=== PATIENT | female | born 1960 | race African-American/Black ===

== ENCOUNTER 2019-07-14 07:23 | Inpatient (IN) | payer MEDICARE, OTHER ==
[2019-07-14] MEDS ORDERED: hydrALAZINE HCL 20 MG/1 ML ONE ×2 (08:48→10:55)
[2019-07-14] MEDS ORDERED: SODIUM CHLORIDE IRRIG SOLUTION 3,000 ML IRRIG.SOLN IR ONE (08:48)
[2019-07-14] MEDS ORDERED: LACTATED RINGERS 1,000 ML IV.SOLN IV ONE (08:48)
[2019-07-14] MEDS ORDERED: DEXAMETHASONE SODIUM PHOSPHATE 10 MG/ML VIAL ONE (08:48)
[2019-07-14] MEDS ORDERED: LIDOCAINE HCL 2% PF 100MG/5ML VIAL IJ ONE (08:48)
[2019-07-14] MEDS ORDERED: LIDOCAINE HCL 1% PF 300MG/30ML VIAL ONE (08:48)
[2019-07-14] MEDS ORDERED: SUGAMMADEX SODIUM 200 MG/2 ML VIAL IV ONE (08:48)
[2019-07-14] MEDS ORDERED: SCOPOLAMINE HYDROBROMIDE 1.5MG/72HR PATCH TD ONE (08:48)
[2019-07-14] MEDS ORDERED: SEVOFLURANE 250 ML LIQUID IH ONE (08:48)
[2019-07-14] MEDS ORDERED: PROPOFOL 200 MG/20 ML VIAL IV ONE (08:48)
[2019-07-14] MEDS ORDERED: MIDAZOLAM HCL 2 MG/2 ML VIAL ONE (08:48)
[2019-07-14] MEDS ORDERED: ceFAZolin SODIUM 1 GM VIAL ONE (08:48)
[2019-07-14] MEDS ORDERED: ROCURONIUM BROMIDE 10 MG/ML 5ML VIAL ONE (08:48)
[2019-07-14] MEDS ORDERED: BUPIV. HCL 0.25% (2.5MG/ML)/EPI. (1:200,000) PF 10 ML VIAL IM ONE (08:48)
[2019-07-14] MEDS ORDERED: ONDANSETRON HCL/PF 4 MG/ 2ML VIAL ONE (08:48)
[2019-07-14] MEDS ORDERED: FAMOTIDINE 20 MG/2 ML VIAL IV ONE (08:48)
[2019-07-14] MEDS ORDERED: HYDROmorphone HCL/PF 1 MG/ML VIAL ONE (11:02)
[2019-07-14] MEDS ORDERED: fentaNYL CITRATE/PF 100 MCG/2 ML INJ. ONE (11:13)
[2019-07-14] MEDS ORDERED: IPRATROPIUM/ALBUTEROL SULFATE 3 ML AMPUL.NEB NEB PRN (12:25)
[2019-07-14] MEDS ORDERED: PROMETHAZINE HCL 25 MG in 0.9 % SODIUM CHLORIDE 50 ML IV PRN (12:25)
[2019-07-14] MEDS ORDERED: hydrALAZINE HCL 20 MG/1 ML IVP ONE ×3 (12:30→22:50)
[2019-07-14 12:35] VITALS: BMI 40.8
--- NOTE | 2019-07-14 12:36 | History and Physical Report ---
History of Present Illnes - History of Present Illness Reason for Visit: S/P LAPAROSCOPIC VERTICAL SLEEVE GASTRECTOMY WITH HIATAL HERNIA REPAIR History of Present Illness: Patient is a 58-year-old female who has tried multiple diets and exercise programs with no success. She has always struggled with her weight ever since having children. Patient and surgeon decided to proceed with gastric sleeve procedure. Procedure went well-she was a very difficult intubation so may have some throat irritation. Patient has been on a liquid diet prior to surgery so she is a risk of dehydration s/p surgery. She will be admitted for IV hydration to help hydrate patient until he is able to tolerate a sufficient oral intake, will treat pain with IV medication until patient is able to tolerate oral meds, IV antiemetics to help reduce episodes of nausea and/or vomiting. Patient will be monitored closely using telemetry s/p surgery d/t hx of HTN and JEANETH. Will encourage incentive spirometer for morbid obesity and JEANETH. Will also monitor blood sugars closely due to last A1C >10; will implement SSI as needed. Will watch for symptoms of blood loss due to hx of anemia with last hgb of 9.5 and Hct fo 30.4. Patient appears very uncomfortable s/p surgery. Patient blood pressure 200s/90s will give IV hydralazine. - Past Medical History Cardiac: HTN, Hyperlipidemia Pulmonary: Previously intubated (Difficult intubation), Sleep Apnea Gastrointestinal: Other (Anemia) Heme/Onc: Anemia NOS Psych: Anxiety Musculoskeletal: Chronic low back pain Endocrine: Diabetes (DM2 with insulin), obesity Grav: 4 Para: 2 Ab: 2 - Past Surgical History Past Surgical History: Other (RTC 1998), Tubal Ligation (1975), Other (cone biopsy 1991) - Past Family History Mother Family History: DM, Other (obesity) Father Family History: Hypertension - Past Social History Smoke: Quit (30 years ago) Occupation: Disabled Alcohol: None Drugs: None Lives: With Family () Domestic Violence: Negative - Health Maintenance Health Maintenance: Cholesterol, Pap Smear, Mammogram Influenza Vaccine: No Pneumonia Vaccine: No Resuscitation Status: Resusciation Status Resuscitation Status Full Code - Unable to Obtain History Unable to Obtain: No Review of Systems - Review of Systems Constitutional: Weakness Eyes: negative: conjunctivae inflammation, eyelid inflammation ENT: Throat Pain (difficult intubation; sore) Respiratory: SOB with Excertion Cardiovascular: negative: Chest Pain, Palpitations Gastrointestinal: Nausea, Abdominal Pain (s/p LSG). negative: Vomiting Genitourinary: negative: Dysuria Musculoskeletal: Back Pain (chronic) Skin: Other (abdominal incisions) Neurological: Weakness - Medications/Allergies Allergies/Adverse Reactions: Allergies Allergy/AdvReac Type Severity Reaction Status Date / Time No Known Allergies Allergy Unverified 07/14/19 12:15 Home Medications: Home Medications Aspirin 81 mg PO DAILY 07/14/19 Atorvastatin Calcium 20 mg PO DAILY 07/14/19 Carvedilol [Coreg] 12.5 mg PO DAILY 07/14/19 Ergocalciferol (Vitamin D2) [Vitamin D2] 50,000 unit PO WEEK 07/14/19 Ferrous Gluconate [Iron] 236 mg PO DAILY 07/14/19 Fluticasone Propionate [Flovent 50 Mcg Diskus] 50 mcg IH DAILY PRN 07/14/19 Furosemide [Lasix] 20 mg PO DAILY 07/14/19 Insulin Aspart [Novolog] 10 units SQ 0730 07/14/19 Insulin Glargine,Hum.rec.anlog [Lantus Solostar] 44 unit SQ HS 07/14/19 Lisinopril/Hydrochlorothiazide [Lisinopril-Hctz 20-25 mg Tab] 1 each PO DAILY 07/14/19 Multivit-Min/Iron/Folic/Lutein [Multivitamin Women 50 Plus Tab] 1 tab PO DAILY 07/14/19 Oxycodone HCl/Acetaminophen [Percocet 10/325] 1 each PO TID 07/14/19 Potassium Chloride 10 meq PO DAILY 07/14/19 Ranitidine HCl 150 mg PO BID 07/14/19 Current Inpatient Medications: Current Inpatient Medications Acetaminophen (Ofirmev) 1,000 mg IV Q6H PRN PRN Reason: Pain Stop: 08/13/19 12:34 Hydrocodone Bitart/Acetaminophen (Hycet 7.5-325mg/15 Ml Ud Cup) 15 ml PO Q4 PRN PRN Reason: Mild Pain (Score 1-4) Stop: 07/18/19 12:24 Albuterol/Ipratropium (Duoneb) 3 ml NEB Q4 PRN PRN Reason: Wheezing Stop: 08/13/19 12:24 Enoxaparin Sodium (Lovenox) 40 mg SQ DAILY MADELYN Stop: 07/29/19 12:25 Famotidine (Pepcid) 20 mg IVP BID [facility] Stop: 07/18/19 20:59 Hydralazine HCl (Apresoline) 10 mg IVP NOW ONE Stop: 07/14/19 12:31 Sodium Chloride (Normal Saline) 1,000 mls @ 150 mls/hr IV Q8H [facility] Stop: 08/13/19 12:29 Promethazine HCl 25 mg/ Sodium (Chloride) 51 mls @ 200 mls/hr IV Q6 PRN PRN Reason: Nausea / Vomiting Stop: 07/18/19 12:24 Cefazolin Sodium 1 gm/ Sodium (Chloride) 50 mls @ 100 mls/hr IV Q8H [facility] Stop: 07/15/19 01:59 Insulin Human Regular (Novolin R) 0 unit SQ CHEMQID [facility]; Protocol Stop: 08/13/19 16:59 Miscellaneous (Chem Sticks) 1 each [facility] Stop: 08/13/19 16:59 Morphine Sulfate () 2 mg IV Q2H PRN PRN Reason: PAIN 8-10 Stop: 07/15/19 12:24 Ondansetron HCl (Zofran) 4 mg IVP Q6H PRN PRN Reason: Nausea / Vomiting Stop: 07/18/19 12:24 Exam - Exam Vital Signs: Vital Signs (72 hours) 07/14/19 07/14/19 12:18 12:30 Temperature 96.3 F L 96.3 F L Pulse Rate [ 77 77 Left] Respiratory 18 18 Rate Blood Pressure 204/98 204/78 [Left Arm] O2 Sat by Pulse 98 98 Oximetry General: Alert, Oriented to Person, Oriented to Place, Cooperative, Moderate distress (still drowsy from anesthesia) HEENT: Atraumatic, PERRLA, Other (dry mucous membranes) Neck: Normal Range of Motion Carotids: No bruit Lungs: Clear to auscultation, Normal air movement Cardiovascular: Regular rate, Normal S1, Normal S2 Abdomen: Soft, Decreased Bowel Sounds Integumentary: Warm, Dry, Pale, Other (Incisions x 5 intact without redness/erythema- skin adhesive intact) Extremities: No edema, Normal pulses, No tenderness/swelling Neurological: Strength Equal Bilat, Sensation intact, Generalized Weakness Psych/Mental Status: Appropriate Affect Assessment/Plan - Assessment/Plan (1) Status post laparoscopic sleeve gastrectomy Status: Acute Current Visit: Yes Plan: Plan to admit for IV hydration, IV pain meds, and IV antiemetics. Lovenox and SCDs to help prevent DVTs, IS and frequent ambulation will be implemented. Start ice chips and advance diet as tolerated. IV pepcid BID (2) Nausea and vomiting Status: Acute Current Visit: Yes Plan: Pepcid IV BID ordered; IV antiemetics, and IVF (3) Type 2 diabetes mellitus Status: Acute Current Visit: Yes Qualifiers: Diabetes mellitus care home insulin use: with care home use Diabetes mellitus complication status: with hyperglycemia Qualified Code(s): E11.65 - Type 2 diabetes mellitus with hyperglycemia; Z79.4 - termite inspector (current) use of insulin Plan: last A1C > 10; we will check blood sugars ac & hs and implement sliding scale insulin (4) Hypertension Status: Acute Current Visit: Yes Qualifiers: Hypertension type: essential hypertension Qualified Code(s): I10 - Essential (primary) hypertension Plan: Will monitor blood pressure every 4 hours and prn; may implement blood pressure medications as needed (5) Obstructive sleep apnea Status: Acute Current Visit: Yes Plan: Patient is to use CPAP while hospitalized; incentive spirometer every hour while awake (6) Chronic low back pain Status: Acute Current Visit: Yes (7) Morbid (severe) obesity due to excess calories Status: Acute Current Visit: Yes Plan: Patient is s/p gastric sleeve. We will assist patient with implementing gastric sleeve diet protocol starting with ice chips and clear liquids and advancing as tolerated VTE Assessment - RISK FACTOR SCORE VTE RISK FACTOR SCORES: AGE 40-60 YEARS, OBESITY, MAJOR SURGERY/ANESTHESIA TIME > 1 HOUR - RISK VTE HIGH RISK: SCORE OF 3-4 (RISK PROXIMAL DVT 4-8%) PROPHYLAXIS NEEDED (Lovenox daily, SCDs while in bed, frequent ambulation, Incentive spirometer)
[2019-07-14] MEDS: 0.9 % SODIUM CHLORIDE 1,000 ML IV SCH ×2 (12:39→20:01)
[2019-07-14] MEDS: ACETAMINOPHEN 1,000 MG/100 ML INJ IV PRN ×2 (12:51→21:17)
[2019-07-14] MEDS: MORPHINE SULFATE 2 MG/ML VIAL IV PRN ×2 (15:10→17:29)
[2019-07-14] MEDS: ceFAZolin SODIUM 1 GM in 0.9 % SODIUM CHLORIDE 50 ML IV SCH (17:12)
[2019-07-14] MEDS: INSULIN REGULAR, HUMAN 100 UNIT/ML 10ML VIAL SQ SCH ×2 (17:24→22:02)
[2019-07-14] MEDS ORDERED: ceFAZolin SODIUM 1 GM in 0.9 % SODIUM CHLORIDE 50 ML IV SCH (17:30)
[2019-07-14] MEDS: ONDANSETRON HCL/PF 4 MG/ 2ML VIAL IVP PRN (17:38)
[2019-07-14] MEDS: FAMOTIDINE 20 MG/2 ML VIAL IVP SCH (20:02)
[2019-07-15] MEDS: ceFAZolin SODIUM 1 GM in 0.9 % SODIUM CHLORIDE 50 ML IV SCH (01:38)
[2019-07-15] MEDS: MORPHINE SULFATE 2 MG/ML VIAL IV PRN (01:40)
[2019-07-15] MEDS ORDERED: hydrALAZINE HCL 20 MG/1 ML IVP ONE ×2 (02:18→17:45)
[2019-07-15] MEDS: 0.9 % SODIUM CHLORIDE 1,000 ML IV SCH ×3 (02:37→16:11)
[2019-07-15] MEDS ORDERED: LISINOPRIL 20 MG TABLET PO ONE ×2 (06:16→16:21)
[2019-07-15] MEDS: hydroCHLOROthiazide 25 MG TABLET PO SCH (06:31)
[2019-07-15] MEDS: CARVEDILOL 12.5 MG TABLET PO SCH (06:31)
[2019-07-15] MEDS: LISINOPRIL 10 MG TABLET PO SCH (06:31)
[2019-07-15 06:46] LABS: BASOPHILS % 0.4 % (0.0-1.5); NEUTROPHILS # 10.3 # k/uL (1.4-7.7)
[2019-07-15 06:47] LABS: eGFR (Non-African) > 60
--- NOTE | 2019-07-15 06:48 | Inpatient Progress Note ---
Subjective - Required Recertification Statement I anticipate X number of days because-include discharge plan: 1 - Review of Systems Events since last encounter: Patient is lying in bed this morning awake. She states that she did not get much sleep. She was having a lot of discomfort last night. She states that pain is improving. She has had some nausea and moderate discomfort from the gas. She denies any chest pain or shortness of breath. She has been up ambulating in the halls and using incentive spirometer while awake. She is compliant with care. Blood pressures have been elevated 200s/90s; she has received several doses of Hydralazine- patient not having any dry heaves; we will initiate blood pressure medications this morning. General: Fatigue HEENT: Denies: Head Aches, Dysphasia Pulmonary: Denies: Dyspnea Cardiovascular: Denies: Chest Pain, Edema Gastrointestinal: Nausea, Abdominal Pain. Denies: Vomiting Genitourinary: Denies: Dysuria Musculoskeletal: Back Pain Neurological: Weakness Objective - Exam Vitals and I&O: Vital Signs Temp 99.5 F 07/15/19 05:50 Pulse 90 07/15/19 06:00 Resp 20 07/15/19 06:00 BP 195/82 07/15/19 05:50 Pulse Ox 99 07/15/19 06:00 Intake & Output 07/14/19 07/14/19 07/15/19 11:59 23:59 11:59 Intake Total 593 1260 Output Total 1000 625 Balance -407 635 Weight 125.464 kg Intake: IV 453 1200 right AC 453 1200 Oral 140 60 Output: Urine 1000 625 Other: Voiding Method Toilet Toilet # Voids 1 # Bowel Movements 0 General: Alert, Oriented to Person, Oriented to Place, Oriented to Time, Cooperative, Mild distress, Morbidly Obese HEENT: Atraumatic, PERRLA, Mouth Mucous membr. moist/[place], Nose Mucous membr. moist/[place] Neck: Supple, +2 carotid pulse wo bruit Lungs: Clear to auscultation, Normal air movement, Speaks full Sentences Cardiovascular: Regular rate, Normal S1, Normal S2 Abdomen: Soft, Decreased Bowel Sounds Extremities: No edema, Normal pulses, No tenderness/swelling Skin: [place], Warm, Dry, Other (Incisions intact with no redness/erythema/drainage; skin adhesive intact) Neurological: Normal gait, Normal speech, Strength Equal Bilat Psych/Mental Status: Mental status NL, Mood NL, Appropriate Affect - Results Results: Laboratory Results WBC 13.20 K/ul (4.00-12.00) H 07/15/19 05:15 RBC 4.04 M/ul (3.90-5.20) 07/15/19 05:15 Hgb 10.0 g/dL (11.5-16.0) L 07/15/19 05:15 Hct 31.2 % (34.5-46.5) L 07/15/19 05:15 MCV 77.0 fl (80.0-100.0) L 07/15/19 05:15 MCH 24.6 pg (28.0-34.0) L 07/15/19 05:15 MCHC 31.9 g/dL (30.0-36.0) 07/15/19 05:15 RDW 13.5 % (11.3-14.3) 07/15/19 05:15 Plt Count 341 K/mm3 (130-400) 07/15/19 05:15 Neut % (Auto) 77.5 % (39.0-79.0) 07/15/19 05:15 Lymph % (Auto) 13.6 % (16.0-50.0) L 07/15/19 05:15 [place] % (Auto) 7.6 % (0.0-11.0) 07/15/19 05:15 Eos % (Auto) 0.9 % (0.0-6.8) 07/15/19 05:15 Baso % (Auto) 0.4 % (0.0-1.5) 07/15/19 05:15 Neut # (Auto) 10.3 # k/uL (1.4-7.7) H 07/15/19 05:15 Lymph # (Auto) 1.8 # k/uL (0.6-4.0) 07/15/19 05:15 [place] # (Auto) 1.0 # k/uL (0.0-0.9) H 07/15/19 05:15 Eos # (Auto) 0.1 # k/uL (0.0-0.6) 07/15/19 05:15 Baso # (Auto) 0.1 # k/uL (0.0-0.5) 07/15/19 05:15 Sodium 139 mmol/L (137-145) 07/15/19 05:15 Potassium 4.0 mmol/L (3.5-5.1) 07/15/19 05:15 Chloride 104 mmol/L (98-107) 07/15/19 05:15 Carbon Dioxide 21 mmol/L (22-30) L 07/15/19 05:15 Anion Gap 18.0 07/15/19 05:15 BUN 15 mg/dL (7-17) 07/15/19 05:15 Creatinine 0.91 mg/dL (0.52-1.04) 07/15/19 05:15 Estimated Creat Clear 155 07/15/19 05:15 Est GFR ( Amer) > 60 (60-) 07/15/19 05:15 Est GFR (Non-Af Amer) > 60 (60-) 07/15/19 05:15 Glucose 174 mg/dL (74-106) H 07/15/19 05:15 Calcium 9.3 mg/dL (8.4-10.2) 07/15/19 05:15 Total Bilirubin 0.4 mg/dL (0.2-1.3) 07/15/19 05:15 AST 48 U/L (15-46) H 07/15/19 05:15 ALT 17 U/L (0-35) 07/15/19 05:15 Alkaline Phosphatase 115 U/L (38-126) 07/15/19 05:15 Total Protein 7.6 g/dL (6.3-8.2) 07/15/19 05:15 Albumin 3.8 g/dL (3.5-5.0) 07/15/19 05:15 Assessment/Plan - Assessment/Plan (1) Status post laparoscopic sleeve gastrectomy Status: Acute Current Visit: Yes Assessment: Patient experiencing nausea; has been ambulating, wearing SCDs while in bed, using incentive spirometry, patient receiving lovenox to prevent DVT Plan: Patient getting IV fluids for hydration, IV pain meds, and IV antiemetics. Lovenox and SCDs to help prevent DVTs, IS and frequent ambulation will be implemented. Patient eating ice chips and will advance diet to clear liquids as tolerated once nausea and vomiting is controlled. Will continue with Pepcid IV BID for GI upset (2) Nausea and vomiting Status: Acute Current Visit: Yes Assessment: Patient having nausea; able to sip on fluids Plan: Will continue with Zofran and phenergan (3) Type 2 diabetes mellitus Status: Acute Current Visit: Yes Qualifiers: Diabetes mellitus termite inspector insulin use: with termite inspector use Diabetes mellitus complication status: with hyperglycemia Qualified Code(s): E11.65 - Type 2 diabetes mellitus with hyperglycemia; Z79.4 - shelter (current) use of insulin Assessment: Blood sugar this morning 174 Plan: Patient on SSI- will continue to monitor closely (4) Hypertension Status: Acute Current Visit: Yes Qualifiers: Hypertension type: essential hypertension Qualified Code(s): I10 - Essential (primary) hypertension Assessment: Blood pressures remain elevated >180s/90s; denies headaches, chest pain, or shortness of breath Plan: Several doses of Hydralazine given; will start carvedilol, lisinopril and HCTZ this morning; continue to monitor (5) Obstructive sleep apnea Status: Acute Current Visit: Yes Assessment: Stable Plan: Continue to use CPAP (6) Chronic low back pain Status: Acute Current Visit: Yes Assessment: stable Plan: May offer heating pad (7) Morbid (severe) obesity due to excess calories Status: Acute Current Visit: Yes Assessment: Patient tolerating ice chips and water; some nausea Plan: Will advance diet to clear liquids today
[2019-07-15] MEDS: HYDROcodone-ACETAMIN 7.5-325/15ML SOLN UD CUP PO PRN ×4 (07:36→20:29)
[2019-07-15] MEDS: INSULIN REGULAR, HUMAN 100 UNIT/ML 10ML VIAL SQ SCH ×4 (07:37→20:31)
[2019-07-15] MEDS: FAMOTIDINE 20 MG/2 ML VIAL IVP SCH ×2 (08:53→20:24)
[2019-07-15] MEDS: ENOXAPARIN SODIUM 40 MG/0.4 ML DISP.SYRIN SQ SCH (13:04)
[2019-07-15] MEDS ORDERED: hydrALAZINE HCL 20 MG/1 ML ONE (17:45)
[2019-07-15] MEDS: ONDANSETRON HCL/PF 4 MG/ 2ML VIAL IVP PRN (20:21)
[2019-07-15] MEDS ORDERED: LABETALOL HCL 20 MG/4 ML SYRINGE IV ONE (22:10)
[2019-07-16] MEDS: HYDROcodone-ACETAMIN 7.5-325/15ML SOLN UD CUP PO PRN ×2 (01:18→05:42)
[2019-07-16] MEDS ORDERED: LABETALOL HCL 20 MG/4 ML SYRINGE IV ONE ×2 (02:44→02:45)
[2019-07-16] MEDS: ACETAMINOPHEN 1,000 MG/100 ML INJ IV PRN ×2 (03:03→08:44)
--- NOTE | 2019-07-16 07:24 | Discharge Summary ---
Discharge Summary - Discharge [facility] Admission Date: 07/14/19 Discharge Date: 07/16/19 Discharge To: Home History of Present Illness: Patient is a 58-year-old female who has tried multiple diets and exercise programs with no success. She has always struggled with her weight ever since having children. Patient and surgeon decided to proceed with gastric sleeve procedure. Procedure went well-she was a very difficult intubation so may have some throat irritation. Patient has been on a liquid diet prior to surgery so she is a risk of dehydration s/p surgery. She will be admitted for IV hydration to help hydrate patient until he is able to tolerate a sufficient oral intake, will treat pain with IV medication until patient is able to tolerate oral meds, IV antiemetics to help reduce episodes of nausea and/or vomiting. Patient will be monitored closely using telemetry s/p surgery d/t hx of HTN and JEANETH. Will encourage incentive spirometer for morbid obesity and JEANETH. Will also monitor blood sugars closely due to last A1C >10; will implement SSI as needed. Will watch for symptoms of blood loss due to hx of anemia with last hgb of 9.5 and Hct fo 30.4. Patient appears very uncomfortable s/p surgery. Patient blood pressure 200s/90s will give IV hydralazine. Condition at Discharge: Stable Home Medications: Ambulatory Orders Medication Instructions Recorded Aspirin 81 mg PO DAILY 07/14/19 Atorvastatin Calcium 20 mg PO DAILY 07/14/19 Carvedilol [Coreg] 12.5 mg PO DAILY 07/14/19 Ergocalciferol (Vitamin D2) 50,000 unit PO WEEK 07/14/19 [Vitamin D2] Ferrous Gluconate [Iron] 236 mg PO DAILY 07/14/19 Fluticasone Propionate [Flovent 50 50 mcg IH DAILY PRN 07/14/19 Mcg Diskus] Furosemide [Lasix] 20 mg PO DAILY 07/14/19 Insulin Aspart [Novolog] 10 units SQ 0730 07/14/19 Insulin Glargine,Hum.rec.anlog 44 unit SQ HS 07/14/19 [Lantus Solostar] Lisinopril/Hydrochlorothiazide 1 each PO DAILY 07/14/19 [Lisinopril-Hctz 20-25 mg Tab] Multivit-Min/Iron/Folic/Lutein 1 tab PO DAILY 07/14/19 [Multivitamin Women 50 Plus Tab] Oxycodone HCl/Acetaminophen 1 each PO TID 07/14/19 [Percocet 10/325] Potassium Chloride 10 meq PO DAILY 07/14/19 Ranitidine HCl 150 mg PO BID 07/14/19 Consultations this Visit: None Procedures this Visit: Other (S/P LAPAROSCOPIC VERTICAL SLEEVE GASTRECTOMY WITH HIATAL HERNIA REPAIR) Allergies/Adverse Reactions: Allergies Allergy/AdvReac Type Severity Reaction Status Date / Time No Known Allergies Allergy Unverified 07/14/19 12:15 Discharge Summary: Patient is a 58-year-old female that underwent the gastric sleeve procedure. She had some issues with nausea and dry heaves but has done well. She has been very cooperative with her care by ambulating frequently, using her incentive spirometer, and wearing her SCDs while in bed. She has been compliant with her diet during hospitalization. She is having minimal discomfort at this time and minimal nausea- she has is passing gas and belching. She is aware of discharge instructions and what she can and cannot do post surgical- she is aware of the strict diet she must follow to decrease discomfort and have success after procedure. She has family support and family will be taking her home- medications written by surgeon given to patient. She feels ready to go home. Hospital Course: Patient received IV pain medications, antiemetics, and IVF and was transitioned to oral. She has been up ambulating and using incentive spirometer. She has received several doses of anti-hypertensives for HTN - Final Diagnosis (1) Status post laparoscopic sleeve gastrectomy Problems: Continue with bariatric sleeve diet- clear liquids today and start full liquids tomorrow; protein shake 80-100 grams protein Right or Left: Right (2) Nausea and vomiting Problems: Incision without redness or drainage, positive bowel sounds, minimal discomfort, belching and flatus, no extremity pain or edema, LCTA Right or Left: Right (3) Type 2 diabetes mellitus Problems: Stable; monitor blood sugars closely; keep log and take to PCP appointment Right or Left: Right (4) Hypertension Problems: Continue home medications; monitor blood pressure closely Right or Left: Right (5) Obstructive sleep apnea Problems: Use CPAP Right or Left: Right (6) Chronic low back pain Problems: Stable Right or Left: Right (7) Morbid (severe) obesity due to excess calories Problems: Incision without redness or drainage, positive bowel sounds, minimal discomfort, belching and flatus, no extremity pain or edema, LCTA Right or Left: Right
[2019-07-16] MEDS: INSULIN REGULAR, HUMAN 100 UNIT/ML 10ML VIAL SQ SCH (07:57)
[2019-07-16] MEDS ORDERED: 0.9 % SODIUM CHLORIDE 50 ML IV ONE (08:35)
[2019-07-16] MEDS ORDERED: cloNIDine HCL 0.1 MG TABLET PO ONE (08:36)
[2019-07-16] MEDS: LISINOPRIL 10 MG TABLET PO SCH (08:53)
[2019-07-16] MEDS: ENOXAPARIN SODIUM 40 MG/0.4 ML DISP.SYRIN SQ SCH (08:54)
[2019-07-16] MEDS: hydroCHLOROthiazide 25 MG TABLET PO SCH (08:54)
[2019-07-16] MEDS: CARVEDILOL 12.5 MG TABLET PO SCH (08:56)
[2019-07-16] MEDS ORDERED: cloNIDine HCL 0.1 MG TABLET PO SCH (09:00)
[2019-07-16] MEDS: FAMOTIDINE 20 MG/2 ML VIAL IVP SCH (09:03)
[2019-07-16 09:18] LABS: eGFR (Non-African) > 60
[2019-07-16 09:46] VITALS: BP 166/69
--- NOTE | 2019-07-19 15:24 | Operative Note ---
PROCEDURE DATE: 07/14/2019 PREOPERATIVE DIAGNOSIS: 1. Morbid obesity. 2. Hypertension. 3. Obstructive sleep apnea. 4. Type 2 diabetes. 5. Dyslipidemia. POSTOPERATIVE DIAGNOSIS: 1. Morbid obesity. 2. Hypertension. 3. Obstructive sleep apnea. 4. Type 2 diabetes. 5. Dyslipidemia. 6. Hiatal hernia. PROCEDURES PERFORMED: 1. Laparoscopic vertical sleeve gastrectomy. 2. Upper gastrointestinal endoscopy. 3. Laparoscopic repair of hiatal hernia. SURGEON: Brodie Alvarado M.D. INDICATIONS FOR PROCEDURE: Ms. Dov Wooten is a 58-year-old female who presented with features of morbid obesity. She was noted to have a weight of 284 pounds with a BMI of 45.9 with the above-listed comorbidities. The patient was advised laparoscopic vertical sleeve gastrectomy and possible hiatal hernia repair. The patient showed understanding and agreed to proceed. DESCRIPTION OF PROCEDURE: After explaining to the patient in detail and informed consent was obtained, the patient was identified in the preoperative holding area. The patient was transferred to the operating room and was placed in supine position. Sequential compressive devices were placed for DVT prophylaxis. Preoperative antibiotics were given. After induction of anesthesia, the abdomen was prepped and draped in a sterile fashion. Through a left upper quadrant 1-cm incision, and using Optiview technique, the peritoneal cavity was entered and pneumoperitoneum was created. Thereafter, under direct vision, a 5-mm trocar was placed in the left midabdomen, a 15-mm trocar was placed in the right midabdomen, and another 5-mm trocar was placed in the right subcostal region. Through a 1-cm incision in the epigastrium, a Melissa retractor was introduced and the left lobe of the liver was retracted. On initial inspection, the patient was noted to have a 3 to 4-cm hiatal hernia. Using pars flaccida technique, the right suze was identified. The phrenoesophageal membrane was divided anteriorly. I then mobilized the sac from the right suze using sharp and blunt dissection. I continued dissection anteriorly and then along the left suze, and then I did a posterior dissection to mobilize adequate length of the esophagus to be within the crura. At this point, a 36 Danish Hurst bougie was inserted into the stomach and this was placed along the lesser curve. An anterior cruroplasty was then performed with a [id number] Ethibond suture. Another Ethibond suture was then placed between the esophagus and the right crura to pexy. I started to proceed with the sleeve gastrectomy. The gastroepiploic vessels were taken down using ENSEAL. This was continued superiorly. The short gastric vessels were taken down. The gastrophrenic ligament was divided and the Angle of His was mobilized. Distally, the gastroepiploic vessels were taken down up to about 4 cm proximal to the pylorus. The stomach was then divided in a vertical fashion with multiple Endo DINORAH Covidien Staplers. Two green loads and three purple loads were used to divide the stomach in a vertical fashion to create a loose sleeve around the 36 Danish bougie. The orogastric tube was then removed. An upper GI endoscopy was performed. The scope was introduced into the esophagus and was gradually advanced into the stomach. The sleeve appeared to be of adequate size. There was no bleeding. An air leak test was performed by irrigation of fluid along the staple line and by insufflation of the stomach. There was no leak noted. The stomach was then suctioned out. Absolute hemostasis was ensured. Thorough saline irrigation was given. Approximately 10 mL of a lidocaine-Marcaine mix was instilled under the left hemidiaphragm. The incisions were then closed with 4-0 Monocryl. The sleeve gastrectomy specimen and Melissa retractor was removed. The patient was awakened from anesthesia and was transferred to the recovery room in stable condition. ESTIMATED BLOOD LOSS: Approximately 10 mL. CONDITION OF THE PATIENT: Stable. FLUIDS GIVEN: Per Anesthesia note. SPECIMEN(S) SENT: Sleeve gastrectomy specimen. COMPLICATIONS: None. ANESTHESIA: General. Brodie Alvarado M.D. TAVO/conrado (Please copy [facility] provider when applicable) Job #[id number] MARCY
== END 2019-07-16 11:40 | disposition home or self-care (01) | DRG 621 ==
LOC: OPSURG 07:23 → SOUTH 12:05
PROVIDERS: ADMIT Nurse Practitioner Family; ATTEND Nurse Practitioner Family
PROC: 0DB64Z3 Excision of Stomach, Percutaneous Endoscopic Approach, Vertical (ICD-10-PCS; principal; 2019-07-14)
PROC: 0BQT4ZZ Repair Diaphragm, Percutaneous Endoscopic Approach (ICD-10-PCS; 2019-07-14)
DX: E66.01 Morbid (severe) obesity due to excess calories (principal); I10 Essential (primary) hypertension; G47.33 Obstructive sleep apnea (adult) (pediatric); E78.5 Hyperlipidemia, unspecified; K44.9 Diaphragmatic hernia without obstruction or gangrene; F41.9 Anxiety disorder, unspecified; G89.29 Other chronic pain; E11.65 Type 2 diabetes mellitus with hyperglycemia; M54.5 Low back pain; Z68.42 Body mass index [BMI] 45.0-49.9, adult; Z98.51 Tubal ligation status; Z87.891 Personal history of nicotine dependence; Z79.82 Long term (current) use of aspirin; Z79.899 Other long term (current) drug therapy; Z79.4 Long term (current) use of insulin; Z79.51 Long term (current) use of inhaled steroids
CPT/HCPCS: 80053; 85025; 88305; 97116; 97535; A9270; J0360; J0690; J1170; J1650; J1815; J2001; J2250; J2270; J2405; J2550; J2704; J3010; J7030; J7120; 43235; 43775; 99221; 99231; 99238